=== PATIENT | female | born 1990 | race Caucasian/White ===

== ENCOUNTER 2021-08-09 16:43 | Emergency (ER) | payer BC, MEDICAID, OTHER ==
[2021-08-09] MEDS ORDERED: Sodium Chloride 0.9% 10 ML Syringe FLUSH PRN (16:56)
[2021-08-09] MEDS ORDERED: Sodium Chloride 0.9% 2.5 ML Syringe FLUSH PRN (16:56)
--- NOTE | 2021-08-09 17:02 | EDM.PDOC ---
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 Symptoms started spontaneously as she was walking up the steps, she initially had 4-5 out of 10 cramping abdominal pain she is currently wearing one pad the bleeding seems to have lessened and her cramping pain has essentially resolved. No fevers no chills patient was previously doing well no vaginal discharge. abdomen Pain Score (Numeric/FACES): 3 - Related Data Allergies Allergy/AdvReac Type Severity Reaction Status Date / Time No Known Allergies Allergy Verified 08/09/21 17:17 Home Meds: Home Meds . [No Known Home Meds] 08/09/21 [History] ED ROS GENERAL - Review of Systems Review Of Systems: See Below Free Text/Narrative/Comment: General: No fever. Skin: No rash. Eyes: No vision problems. ENT: No sore throat. Neck: No neck stiffness. Respiratory: No shortness of breath. Cardiac: No chest pain. Gastrointestinal: No nausea, vomiting or abdominal pain. : Per HPI, no hematuria or dysuria Musculoskeletal: No myalgias/arthralgias. Neurologic: No headache. ED EXAM, GENERAL - Physical Exam Exam: See Below Free Text/Narrative:: General Appearance: No acute distress, appears comfortable Skin: No rash HEENT: Normocephalic/atraumatic, sclera anicteric, mucous membranes moist Neck: Normal range of motion Chest and Lungs: Bilateral breath sounds, clear to auscultation Cardiovascular: Regular rate and rhythm Abdomen: Soft, mild right lower quadrant and suprapubic tenderness without guarding or rebound Musculoskeletal: No edema or tenderness Neurologic: Awake, alert, no obvious deficits, moving all extremities Psychiatric: Appropriate, cooperative Departure - Departure Disposition: Home, Self-Care 01 Clinical Impression: Threatened miscarriage, Subchorionic hemorrhage in first trimester, Rh negative status during in first trimester - Discharge Information Instructions: Threatened Miscarriage, Subchorionic Hematoma Referrals: Ankita Colbert MD [Ordering Only Provider] - 2 Days (Please follow-up with your DRILL SHARPENER OPERATOR for repeat quantitative hCG in 2 to 3 days. Your hCG level today = [id number]. Please practice pelvic rest and bedrest. Please return back to the ER for worsening vaginal bleeding or abdominal pain.) Forms: ED Department Discharge Additional Instructions: The need for follow-up, as well as the timing and circumstances, are variable depending upon the specifics of your emergency department visit. If you don't have a primary care physician on staff, we will provide you with a referral. We always advise you to contact your personal physician following an emergency department visit to inform them of the circumstance of the visit and for follow-up with them and/or the need for any referrals to a consulting specialist. The emergency department will also refer you to a specialist when appropriate. This referral assures that you have the opportunity for follow-up care with a specialist. All of these measure are taken in an effort to provide you with optimal care, which includes your follow-up. Under all circumstances we always encourage you to contact your private physician who remains a resource for coordinating your care. When calling for follow-up care, please make the office aware that this follow-up is from your recent emergency room visit. If for any reason you are refused follow-up, please contact the [facility] Emergency Department at and asked to speak to the emergency department charge nurse. If you do not have a primary care doctor, please follow up with the clinics below within 2-3 days. DRILL SHARPENER OPERATOR clinics [facility] [address] [place] [id number] [facility] [address] [place] [id number] - Assessment/Plan Assessment:: 30-year-old female presenting with signs and symptoms most consistent with threatened miscarriage versus ectopic , versus incomplete miscarriage versus less likely completed miscarriage. Patient hemodynamically stable no peritonitis. CBC, CMP, quantitative hCG, urinalysis, vaginal swabs ordered pelvic ultrasound pending. 1730: Cervix is closed and normal in appearance small amount of blood and mucus coming out of the cervical os. No other abnormal discharge is noted no large blood clots no active hemorrhage or repooling 1827: Labs demonstrate a mild leukocytosis that is likely related to . Urinalysis with a few bacteria, but no abnormal cells or other signs of infection. Chemistry quantitative hCG pending. Ultrasound result pending as well as vaginal swabs. <Dax Trevino - Last Filed: 08/12/21 01:13> ED HPI GENERAL MEDICAL PROBLEM - General Source of Information: Reports: Patient History Limitations: Reports: No Limitations Course - Vital Signs Last Recorded V/S: Last Vital Signs Temp 97.4 F 08/09/21 17:18 Pulse 77 08/09/21 23:49 Resp 17 08/09/21 23:49 BP 114/71 08/09/21 23:49 Pulse Ox 100 08/09/21 23:49 - Orders/Labs/Meds Labs: Laboratory Tests 08/09/21 08/09/21 08/09/21 Range/Units 17:14 17:14 17:14 WBC 14.13 H (4.0-11.0) K/uL RBC 4.34 (4.30-5.90) M/uL Hgb 13.4 (12.0-16.0) g/dL Hct 40.1 (36.0-46.0) % MCV 92.4 (80.0-98.0) fL MCH 30.9 (27.0-32.0) pg MCHC 33.4 (31.0-37.0) g/dL RDW Std Deviation 42.4 (28.0-62.0) fl RDW Coeff of Isaiah 12 (11.0-15.0) % Plt Count 186 (150-400) K/uL MPV 13.10 H (7.40-12.00) fL Neut % (Auto) 86.2 H (48.0-80.0) % Lymph % (Auto) 8.6 L (16.0-40.0) % [place] % (Auto) 4.9 (0.0-15.0) % Eos % (Auto) 0.2 (0.0-7.0) % Baso % (Auto) 0.1 (0.0-1.5) % Neut # (Auto) 12.2 H (1.4-5.7) K/uL Lymph # (Auto) 1.2 (0.6-2.4) K/uL [place] # (Auto) 0.7 (0.0-0.8) K/uL Eos # (Auto) 0.0 (0.0-0.7) K/uL Baso # (Auto) 0.0 (0.0-0.1) K/uL Nucleated RBC % 0.0 /100WBC Nucleated RBCs # 0 K/uL Sodium 137 (136-145) mmol/L Potassium 3.5 (3.5-5.1) mmol/L Chloride 103 (98-107) mmol/L Carbon Dioxide 25.0 (21.0-32.0) mmol/L BUN 7 (7.0-18.0) mg/dL Creatinine 0.7 (0.6-1.0) mg/dL Est Cr Clr Drug Dosing 107.10 mL/min Estimated GFR (MDRD) > 60.0 ml/min Glucose 119 H (74-106) mg/dL Calcium 9.1 (8.5-10.1) mg/dL Total Bilirubin 0.5 (0.2-1.0) mg/dL AST 9 L (15-37) IU/L ALT 12 L (14-63) IU/L Alkaline Phosphatase 49 (46-116) U/L Total Protein 8.2 (6.4-8.2) g/dL Albumin 4.0 (3.4-5.0) g/dL Globulin 4.2 H (2.6-4.0) g/dL Albumin/Globulin Ratio 1.0 (0.9-1.6) HCG, Quant 61808.0 mIU/mL Urine Color Urine Appearance Urine pH (5.0-8.0) Ur Specific Bonanza (1.001-1.035) Urine Protein (NEGATIVE) mg/dL Urine Glucose (UA) (NEGATIVE) mg/dL Urine Ketones (NEGATIVE) mg/dL Urine Occult Blood (NEGATIVE) Urine Nitrite (NEGATIVE) Urine Bilirubin (NEGATIVE) Urine Urobilinogen (<2.0) EU/dL Ur Leukocyte Esterase (NEGATIVE) Urine RBC (0-2/HPF) Urine WBC (0-5/HPF) Ur Epithelial Cells (NONE-FEW) Urine Bacteria (NEGATIVE) Marybel species DNA (NEGATIVE) Chlamydia/GC Source C.trachomatis RNA (TMA) (Negative) Gardnerella DNA Probe (NEGATIVE) N.gonorrhoeae RNA (TMA) (Negative) Trichomonas DNA Probe (NEGATIVE) Blood Type A NEGATIVE Antibody Screen Rhogam Indicated 08/09/21 08/09/21 08/09/21 Range/Units 17:15 17:30 17:30 WBC (4.0-11.0) K/uL RBC (4.30-5.90) M/uL Hgb (12.0-16.0) g/dL Hct (36.0-46.0) % MCV (80.0-98.0) fL MCH (27.0-32.0) pg MCHC (31.0-37.0) g/dL RDW Std Deviation (28.0-62.0) fl RDW Coeff of Isaiah (11.0-15.0) % Plt Count (150-400) K/uL MPV (7.40-12.00) fL Neut % (Auto) (48.0-80.0) % Lymph % (Auto) (16.0-40.0) % [place] % (Auto) (0.0-15.0) % Eos % (Auto) (0.0-7.0) % Baso % (Auto) (0.0-1.5) % Neut # (Auto) (1.4-5.7) K/uL Lymph # (Auto) (0.6-2.4) K/uL Muh[place] # (Auto) (0.0-0.8) K/uL Eos # (Auto) (0.0-0.7) K/uL Baso # (Auto) (0.0-0.1) K/uL Nucleated RBC % /100WBC Nucleated RBCs # K/uL Sodium (136-145) mmol/L Potassium (3.5-5.1) mmol/L Chloride (98-107) mmol/L Carbon Dioxide (21.0-32.0) mmol/L BUN (7.0-18.0) mg/dL Creatinine (0.6-1.0) mg/dL Est Cr Clr Drug Dosing mL/min Estimated GFR (MDRD) ml/min Glucose (74-106) mg/dL Calcium (8.5-10.1) mg/dL Total Bilirubin (0.2-1.0) mg/dL AST (15-37) IU/L ALT (14-63) IU/L Alkaline Phosphatase (46-116) U/L Total Protein (6.4-8.2) g/dL Albumin (3.4-5.0) g/dL Globulin (2.6-4.0) g/dL Albumin/Globulin Ratio (0.9-1.6) HCG, Quant mIU/mL Urine Color YELLOW Urine Appearance HAZY Urine pH 6.0 (5.0-8.0) Ur Specific Bonanza 1.015 (1.001-1.035) Urine Protein NEGATIVE (NEGATIVE) mg/dL Urine Glucose (UA) NEGATIVE (NEGATIVE) mg/dL Urine Ketones 40 H (NEGATIVE) mg/dL Urine Occult Blood SMALL H (NEGATIVE) Urine Nitrite NEGATIVE (NEGATIVE) Urine Bilirubin NEGATIVE (NEGATIVE) Urine Urobilinogen 0.2 (<2.0) EU/dL Ur Leukocyte Esterase NEGATIVE (NEGATIVE) Urine RBC 0-2 (0-2/HPF) Urine WBC 0-3 (0-5/HPF) Ur Epithelial Cells RARE (NONE-FEW) Urine Bacteria FEW (NEGATIVE) Marybel species DNA NEGATIVE (NEGATIVE) Chlamydia/GC Source GENITAL C.trachomatis RNA (TMA) Negative (Negative) Gardnerella DNA Probe NEGATIVE (NEGATIVE) N.gonorrhoeae RNA (TMA) Negative (Negative) Trichomonas DNA Probe NEGATIVE (NEGATIVE) Blood Type Antibody Screen Rhogam Indicated 08/09/21 Range/Units 22:09 WBC (4.0-11.0) K/uL RBC (4.30-5.90) M/uL Hgb (12.0-16.0) g/dL Hct (36.0-46.0) % MCV (80.0-98.0) fL MCH (27.0-32.0) pg MCHC (31.0-37.0) g/dL RDW Std Deviation (28.0-62.0) fl RDW Coeff of Isaiah (11.0-15.0) % Plt Count (150-400) K/uL MPV (7.40-12.00) fL Neut % (Auto) (48.0-80.0) % Lymph % (Auto) (16.0-40.0) % [place] % (Auto) (0.0-15.0) % Eos % (Auto) (0.0-7.0) % Baso % (Auto) (0.0-1.5) % Neut # (Auto) (1.4-5.7) K/uL Lymph # (Auto) (0.6-2.4) K/uL [place] # (Auto) (0.0-0.8) K/uL Eos # (Auto) (0.0-0.7) K/uL Baso # (Auto) (0.0-0.1) K/uL Nucleated RBC % /100WBC Nucleated RBCs # K/uL Sodium (136-145) mmol/L Potassium (3.5-5.1) mmol/L Chloride (98-107) mmol/L Carbon Dioxide (21.0-32.0) mmol/L BUN (7.0-18.0) mg/dL Creatinine (0.6-1.0) mg/dL Est Cr Clr Drug Dosing mL/min Estimated GFR (MDRD) ml/min Glucose (74-106) mg/dL Calcium (8.5-10.1) mg/dL Total Bilirubin (0.2-1.0) mg/dL AST (15-37) IU/L ALT (14-63) IU/L Alkaline Phosphatase (46-116) U/L Total Protein (6.4-8.2) g/dL Albumin (3.4-5.0) g/dL Globulin (2.6-4.0) g/dL Albumin/Globulin Ratio (0.9-1.6) HCG, Quant mIU/mL Urine Color Urine Appearance Urine pH (5.0-8.0) Ur Specific Bon[place] (1.001-1.035) Urine Protein (NEGATIVE) mg/dL Urine Glucose (UA) (NEGATIVE) mg/dL Urine Ketones (NEGATIVE) mg/dL Urine Occult Blood (NEGATIVE) Urine Nitrite (NEGATIVE) Urine Bilirubin (NEGATIVE) Urine Urobilinogen (<2.0) EU/dL Ur Leukocyte Esterase (NEGATIVE) Urine RBC (0-2/HPF) Urine WBC (0-5/HPF) Ur Epithelial Cells (NONE-FEW) Urine Bacteria (NEGATIVE) Marybel species DNA (NEGATIVE) Chlamydia/GC Source C.trachomatis RNA (TMA) (Negative) Gardnerella DNA Probe (NEGATIVE) N.gonorrhoeae RNA (TMA) (Negative) Trichomonas DNA Probe (NEGATIVE) Blood Type A NEGATIVE Antibody Screen NEGATIVE Rhogam Indicated YES Meds: Medications Discontinued Medications Generic Name Dose Route Start Last Admin Trade Name Freq PRN Reason Stop Dose Admin Sodium Chloride 10 ml 08/09/21 16:56 08/09/21 17:35 Sodium Chloride 0.9% 10 Ml Syringe FLUSH 10 ml ASDIRECTED PRN Administration Keep Vein Open Sodium Chloride 2.5 ml 08/09/21 16:56 08/09/21 17:34 Sodium Chloride 0.9% 2.5 Ml Syringe FLUSH 2.5 ml ASDIRECTED PRN Administration Keep Vein Open - Re-Assessments/Exams Free Text/Narrative Re-Assessment/Exam: 08/09/21 19:00 This patient was signed out to me from Dr. Mcclendon at this time. I promptly performed a detailed physical examination, my examination was performed after ED treatments were initiated by the signout provider. 08/09/21 21:54 After prolonged observation in the ER, the patient improved and is currently stable for discharge. I performed a repeat exam and did not appreciate new ab normal findings. Patient exhibits normal vital signs and has a normal gait on road test. I advised the patient to return to the ER for reevaluation if symptoms worsened, including fever, worsening pain, or any other worrisome symptoms. I instructed the patient to follow up with her DRILL SHARPENER OPERATOR Dr. Ankita Mack within 2-3 days. MEDICAL DECISION MAKING: I reviewed the patients past medical records, lab and radiographic findings. I discussed the case with the patient. My differential diagnosis included: Threatened miscarriage, ectopic , heterotopic . Her ultrasound demonstrates IUP with gestational sac and yolk sac corresponding to 5 weeks and 5 days GA, too early to determine viability. Ultrasound also demonstrated a relatively small subchorionic hemorrhage. Patient was informed of the subchorionic hemorrhage and the need to practice pelvic rest and bedrest. She was Rh-, RhoGam administered in the ED. Her quantitative hCG = 490[address] today, instructed her to do a repeat hCG level test in 2 to 3 days to assess for viability of her . Departure - Departure Time of Disposition: 01:13 Condition: Good - Discharge Information *PRESCRIPTION DRUG MONITORING PROGRAM REVIEWED*: Not Applicable *COPY OF PRESCRIPTION DRUG MONITORING REPORT IN PATIENT ALIYA: Not Applicable
[2021-08-09 18:29] LABS: BLOOD UREA NITROGEN,BUN 7 mg/dL (7.0-18.0); CHLORIDE,CL 103 mmol/L (98-107); GLUCOSE RANDOM 119 mg/dL (74-106); POTASSIUM,K 3.5 mmol/L (3.5-5.1); SODIUM,NA 137 mmol/L (136-145)
--- NOTE | 2021-08-09 19:05 | US ---
INDICATION: Positive test with right lower quadrant pain. TECHNIQUE: Ultrasound OB pelvis transabdominal and transvaginal. Real-time chapin-scale imaging of the pelvis was performed. COMPARISON: None. FINDINGS: There is an intrauterine . Gestational sac and yolk sac are both visualized. Mean gestational sac diameter is 1.07 cm which corresponds to a 5 week 5 day gestational age and estimated date of delivery April 06, 2022. Fetus is not yet visualized. There is a subchorionic hemorrhage measuring 1.1 x 0.8 x 0.5 cm. The ovaries are of normal size. There are no suspicious fluid collections noted in the cul-de-sac. IMPRESSION: Intrauterine is present. It is too early to determine viability. There is a relatively small subchorionic hemorrhage. No other abnormality and no other explanation for right lower quadrant pain. Dictated by Jaguar Whitney MD @ 08/09/2021 7:03:03 PM (Electronically Signed)
[2021-08-09 23:50] VITALS: BP 114/71; PULSE 77
[2021-08-11 17:02] LABS: C.TRACHOMATIS BY TMA Negative (Negative); N.GONORRHOEAE BY TMA Negative (Negative)
== END 2021-08-09 23:52 | disposition home or self-care (01) ==
LOC: MW.ED 16:43
DX: O20.0 Threatened abortion (principal); Z67.91 Unspecified blood type, Rh negative; Z3A.01 Less than 8 weeks gestation of pregnancy
CPT/HCPCS: 36415; 76817; 76817-26; 80053; 81001; 84702; 85025; 86850; 86900; 86901; 87480; 87491; 87510; 87591; 87660; 99284-25; J2790